=== PATIENT | male | born 1985 | race Caucasian/White ===

== ENCOUNTER 2021-07-23 20:32 | Emergency (ER) | payer BC ==
[~2021-07-23] VITALS: Ht 190.5 cm; Wt 83.9 kg
--- NOTE | 2021-07-23 20:51 | NUR ---
Patient to ER bed TENT 3 to gown for evaluation. Side rails up.
[2021-07-23 20:52] VITALS: BP_SYST 171
--- NOTE | 2021-07-23 21:00 | NUR ---
Pt brought by self, A&Ox4, pt presents to ER with N/V ,diagnosed with covid yesterday, skin pink and warm,respirations even and unlabored, cap refill <3, VSS,
--- NOTE | 2021-07-23 21:05 | NUR ---
Dr Shukla evaluating patient at bedside
[2021-07-23] MEDS ORDERED: QUER1POW MC (21:16)
[2021-07-23] MEDS ORDERED: ZINC50TA69 PO (21:16)
[2021-07-23] MEDS ORDERED: ONDA-8 TL (21:16)
[2021-07-23] MEDS ORDERED: ASCO500T20 PO (21:16)
[2021-07-23] MEDS ORDERED: VITA-337 PO (21:16)
--- NOTE | 2021-07-23 21:28 | NUR ---
Patient given written and verbal discharge instructions and verbalizes understanding. ER MD discussed with patient the results and treatment provided. Patient in stable condition. ID arm band removed. Rx of Vit C, Zofran, Vit D given. Patient educated on pain management and to follow up with PMD. Pain Scale 2/10 . Opportunity for questions provided and answered. Medication side effect fact sheet provided.
[2021-07-23 21:29] VITALS: BP_SYST 171
== END 2021-07-23 21:29 | disposition home or self-care (01) ==
LOC: SED 20:32
DX: U07.1 COVID-19 (principal); Z79.899 Other long term (current) drug therapy
CPT/HCPCS: 99283